=== PATIENT | female | born 1975 | race Caucasian/White ===

== ENCOUNTER 2024-12-13 16:03 | Emergency (ER) | payer OTHER, SELFPAY ==
--- NOTE | 2024-12-13 | ECG_ITS ---
Test Reason : TIGHTNESS IN CHEST Blood Pressure : */* mmHG Vent. Rate : 82 BPM Atrial Rate : 82 BPM P-R Int : 148 ms QRS Dur : 74 ms QT Int : 368 ms P-R-T Axes : 14 7 62 degrees QTcB Int : 429 ms Normal sinus rhythm Minimal voltage criteria for LVH, may be normal variant ( R in aVL ) Inferior infarct , age undetermined Possible Anterior infarct , age undetermined Abnormal ECG No previous ECGs available Referred By: Generic ED Physician Electronically Signed By: SAMAN GUERRERO
--- NOTE | ~2024-12-13 | XR_ITS ---
CLINICAL HISTORY: chest pain 2 view chest x-ray. Comparison: None Findings: No consolidation. Heart size normal No acute fracture. Impression: The lungs are clear. This document has been electronically signed by: Akbar Mallory MD on 12/13/2024 17:13:45
--- NOTE | 2024-12-13 16:22 | ED_ITS ---
HPI - Chest Pain General Chief Complaint: Chest Pain Stated Complaint: tightness in chest Time Seen by Provider: 12/13/24 17:06 Source: patient, RN notes reviewed and old records reviewed Mode of arrival: ambulatory Limitations: no limitations History of Present Illness ED Provider: Heike WARD narrative: Patient is a 49-year-old female with history of T2DM, GERD, high cholesterol presenting to the emergency department with complaint of chest tightness and pressure. States her 1st episode of this happening woke her from sleep on night and lasted between 10 and 20 minutes, then she was able to fall back asleep. Today she was driving and felt similar symptoms and states ?I just did not feel right. ? States that today's chest tightness lasted around 30 minutes and has since fully resolved. She reports associated dyspnea. Denies any chest tightness, dyspnea or palpitations at this time. States has a family history of cardiac disease, states several cousins have at age 50. Feels as though her symptoms worsened when she started thinking about them/noticing them, is unsure how much of a component her anxiety has to her symptoms. Denies any nausea or vomiting. Denies diaphoresis. complaint: chest discomfort Related Data Allergies Allergy/AdvReac Type Severity Reaction Status Date / Time No Known Allergies Allergy Verified 12/13/24 16:24 Review of Systems 2 Review of Systems: As per HPI Yes all other systems are reviewed and are negative Constitutional: Constitutional: Reports as per HPI [facility] Social History Social History Use of substances other than those prescribed or required for medical reasons: No Advance Directives: No Advance Directives Information Provided: No Do you have a plan to hurt others: No Plan Patient : No Physical Exam 2 Vital Signs: Vital Signs: Last Vital Signs Temp 97.1 F 12/13/24 18:20 Pulse 68 12/13/24 18:20 Resp 17 12/13/24 18:20 BP 115/78 12/13/24 18:20 Pulse Ox 96 12/13/24 18:20 O2 Del Method Room Air 12/13/24 18:20 BMI result Body Mass Index 33.1 Vital signs have been reviewed and appear to be correct. Blood pressure normal. Heart rate normal. Respiratory rate normal. Temperature normal. Oxygen saturation normal. Const: General: cooperative, healthy appearing and no acute distress O rientation/consciousness: oriented to person, oriented to place, oriented to time and patient oriented x3 Limitations: no limitations HEENT: Head: Yes normocephalic and Yes atraumatic Ears: external ears normal General nose exam: Normal external nose present Face and sinus: Yes face symmetric Mouth: oropharynx normal and moist mucous membranes Throat: Yes uvula midline Eyes: Pupils: Equal, round and reactive pupils present Neck: Neck: Yes normal visual inspection and Yes supple Resp: Effort & Inspection: normal respiratory effort and able to speak in complete sentences Auscultation: clear to auscultation bilaterally Cardio: Rate: regular rate Rhythm: regular rhythm Heart sounds: S1 normal heart sound present and S2 normal heart sound present GI: Palpation (GI): Soft to palpation and nontender Auscultation: n ormoactive bowel sounds : General: Yes no CVA tenderness Back/Spine/Pelvis: Back: no CVA tenderness Skin: General skin exam: elasticity normal and turgor normal Neuro: General: oriented to person, oriented to place, oriented to time, patient oriented x3, moves all extremities, no focal motor deficits and CN's II- XI intact bilaterally Cranial nerves: Yes Equal, round and reactive pupils present Cognition (Neuro): normal cognition Extrem: General: Yes full ROM, Yes no pedal edema and Yes no calf tenderness Psych: Mental Status: mental status grossly normal Affect: normal affect Thought process: Normal thought process present Course Course Course Narrative: This is an RME performed by Joaquin Patton, DENTAL TECHNICIAN APPRENTICE: Additional HPI, ROS, PE not included below will be deferred to primary provider. Patient is a 49-year-old female who presents emergency department for evaluation, with the past few days she has been experiencing intermittent chest tightness to the mid anterior chest. Reports 2 days ago she just ignored it had self-resolved. Today she had return of symptoms while driving, but felt worse, and associated shortness of breath. Denies recent cough, respiratory symptoms, trauma/injury, heavy lifting. Plan: Serum labs, ECG, CXR, Medical Decision Making Medical Decision Making MDM Narrative: Patient is a 49-year-old female with history of T2DM, GERD, high cholesterol presenting to the emergency department with complaint of chest tightness and pressure. On exam patient is awake, A+Ox3, VS WNL, afebrile, normal neurological exam without focal deficits, physical exam findings as above. Given reported symptoms and physical exam findings, initial differential includes but is not limited to ACS/GA, pleural effusion, pneumonia, pneumothorax, musculoskeletal pain, GERD, anxiety. Unlikely PE, PERC 0. EKG shows normal sinus rhythm. Labs notable for mildly elevated alk-phos, elevated glucose without anion gap, negative troponin x2. X-ray chest notable for no evidence of pneumonia, pneumothorax. My interpretation is in agreement with the radiologist's interpretation. Patient is pain free at this time. HEART score of 3. The patient is stable for discharge at this time. Advised follow up with PCP. Strict return precautions discussed. Patient verbalized understanding of and agreement with plan. Differential Diagnosis Differential Diagnoses: The differential diagnosis associated with the presentation includes As per [facility] Admission/Observation Consideration of admission/observation: Escalation of care including admission/observation considered Patient would have been admitted to the hospital had their clinical presentation warranted hospital admission. Lab Data [facility] Lab Attestation statement: I reviewed the patient's lab results. As per [facility] 12/13/24 16:40 12/13/24 16:40 Labs: Lab Results 12/13/24 12/13/24 Range/Units 16:40 18:29 WBC 7.0 (4.8-10.8) X10*3/uL RBC 4.70 (4.20-5.50) X10*6/uL Hgb 13.5 (12.0-16.0) g/dl Hct 37.9 (37.0-47.0) % MCV 80.6 (80.0-98.0) fL MCH 28.7 (27.0-33.0) pg MCHC 35.6 H (31.0-35.0) g/dl RDW 13.2 (11.0-16.0) % Plt Count 172 (160-400) X10*3/uL MPV 11.4 (9.4-12.3) fL Immature Gran % (Auto) 0.4 (0.0-0.4) % Neut % (Auto) 55.5 (45-73) % Lymph % (Auto) 35.9 (20-40) % [place] % (Auto) 6.6 (2-11) % Eos % (Auto) 1.3 (0-4) % Baso % (Auto) 0.3 (0-2) % Lymph # (Auto) 2.5 (1.2-4.9) X10*3/uL [place] # (Auto) 0.5 (0.1-1.2) X10*3/uL Eos # (Auto) 0.1 (0.0-0.4) X10*3/uL Baso # (Auto) 0.0 (0.0-0.2) X10*3/uL Abs Immat Gran (auto) 0.03 (0.00-0.03) X10*3/uL Absolute Neuts (auto) 3.9 (2.0-8.3) x10*3/uL Absolute Nucleated RBC 0.000 (0.0-0.012) X10*3/uL Nucleated RBC % (auto) 0.0 (0.0-0.2) /100WBC Smear Tech's Comments VERIFIED Sodium 139 (135-145) mmol/L Potassium 4.0 (3.3-5.1) mmol/L Chloride 105 (96-108) mmol/L Carbon Dioxide 24 (22-29) mmol/L Anion Gap 14 (12-20) BUN 13 (9-16) mg/dL Creatinine 0.84 (0.5-1.4) mg/dL Estim Creat Clear Calc 83.6 Estimated GFR > 60 Random Glucose 298 H (60-115) mg/dL Calcium 9.3 (8.4-10.2) mg/dL Total Bilirubin 0.5 (0.0-1.0) mg/dL AST 23 (5-31) U/L ALT 39 H (0-31) U/L Alkaline Phosphatase 159 H (39-117) U/L Troponin I High Sens < 2.7 < 2.7 (<3.5-17.0) ng/L Total Protein 7.3 (6.5-8.0) g/dL Albumin 4.3 (3.5-5.0) g/dL Independent Interpretation I performed an independent interpretation of an: EKG (Normal sinus rhythm, rate 62 beats per minute, normal GA interval and QTC) and Plain X-Ray Interpretation: No evidence of pneumonia or pneumothorax on chest x-ray Radiology Impression Discussion of test interpretation with radiology: I have reviewed the radiologist's reading. Radiologist Impression: 2 view chest x-ray. Comparison: None Findings: No consolidation. Heart size normal No acute fracture. Impression: The lungs are clear. External Record Review External record reviewed: Inpatient record, Office record and Outpatient record Scores Heart Score History: -0- slightly suspicious ECG: -1- non specific repolarization disturbance Age: -1- >45 - <65 Risk factory: -1- 1 or 2 risk factors Troponin: -0- < or = normal limit Score: 3 Risk: 1.7% Discharge Plan Discharge Clinical Impression: Chest pain Patient Disposition: Home, Self-Care Instructions: Chest Pain (DC), Noncardiac Chest Pain (ED) Additional Instructions: You were evaluated in the emergency department today for chest pain. Your evaluation has shown no signs of medical conditions requiring emergent intervention at this time, however we recommend that you follow-up with your primary care physician or your medical program specialist for further testing as an outpatient. Please schedule an appointment for follow-up with your primary care physician as soon as possible. Return to the emergency department if you experience worsening or uncontrolled chest pain, shortness of breath, lightheadedness, feeling faint, loss of consciousness, nausea, vomiting, or any other concerning symptoms. Print Language: Greek
[2024-12-13 16:23] VITALS: BP 148/77; PULSE 77; RESP 18; TEMP 36.6; O2SAT 99; BMI 33.1
[2024-12-13 16:53] LABS: Hematocrit 37.9 % (37.0-47.0); Hemoglobin 13.5 g/dl (12.0-16.0); Imm Gran Abs Auto 0.03 X10*3/uL (0.00-0.03); Imm Gran Pct Auto 0.4 % (0.0-0.4); Lymphocytes Absolute Auto 2.5 X10*3/uL (1.2-4.9); MANUAL DIFF FLAG SCAN; Mean Corpuscular HGB Conc 35.6 g/dl (31.0-35.0); Mean Corpuscular Hemoglobin 28.7 pg (27.0-33.0); Mean Corpuscular Volume 80.6 fL (80.0-98.0); NRBC Abs Auto 0.000 X10*3/uL (0.0-0.012); NRBC Pct Auto 0.0 /100WBC (0.0-0.2); PLT CLUMP 1; Red Blood Count 4.70 X10*6/uL (4.20-5.50); SCAN SMEAR FLAG 1
[2024-12-13 16:57] LABS: White Blood Count 7.0 X10*3/uL (4.8-10.8)
[2024-12-13 16:59] LABS: Alanine Aminotransferase 39 U/L (0-31); Albumin Level 4.3 g/dL (3.5-5.0); Alkaline Phosphatase 159 U/L (39-117); Anion Gap 14 (12-20); Aspartate Amino Transferase 23 U/L (5-31); Blood Urea Nitrogen 13 mg/dL (9-16); Calcium 9.3 mg/dL (8.4-10.2); Carbon Dioxide 24 mmol/L (22-29); Chloride 105 mmol/L (96-108); Creatinine Clr Calc Pharmacy 83.6; Estimated Glomerular Filt Rate > 60; Potassium 4.0 mmol/L (3.3-5.1); Sodium 139 mmol/L (135-145); Total Protein 7.3 g/dL (6.5-8.0)
[2024-12-13 17:06] LABS: Troponin-I High Sensitivity < 2.7 ng/L (<3.5-17.0)
[2024-12-13 17:11] LABS: Platelet Count 172 X10*3/uL (160-400)
--- NOTE | 2024-12-13 18:05 | ECG_ITS ---
Test Reason : REPEAT Blood Pressure : */* mmHG Vent. Rate : 63 BPM Atrial Rate : 63 BPM P-R Int : 128 ms QRS Dur : 78 ms QT Int : 422 ms P-R-T Axes : 14 23 63 degrees QTcB Int : 431 ms Normal sinus rhythm Cannot rule out Anterior infarct (cited on or before 13-Dec-2024) Abnormal ECG When compared with ECG of 13-Dec-2024 16:06, Criteria for Inferior infarct are no longer Present Referred By: Darling Burroughs Electronically Signed By: SAMAN GUERRERO
[2024-12-13 18:20] VITALS: BP 115/78; PULSE 68; RESP 17; TEMP 36.2; O2SAT 96
[2024-12-13 18:58] LABS: Troponin-I High Sensitivity < 2.7 ng/L (<3.5-17.0)
[2024-12-13 19:39] VITALS: BP 0/0; PULSE 0; RESP 16; TEMP -17.7; TEMP 0; O2SAT 0
== END 2024-12-13 19:40 | disposition home or self-care (01) ==
PROVIDERS: Nurse Practitioner Family; Registered Nurse Emergency; Emergency Provider Emergency Medicine Emergency Medical Services; PCP Student in an Organized Health Care Education/Training Program
DX: R10.9 Unspecified abdominal pain (principal); E11.8 Type 2 diabetes mellitus with unspecified complications; K21.9 Gastro-esophageal reflux disease without esophagitis
CPT/HCPCS: 36415; 71046; 80053; 84484; 85025; 93005; 99283; 99285

== ENCOUNTER → 2024-12-13 16:06 | Outpatient (BNV) | payer OTHER, SELFPAY | PROVIDERS: Emergency Provider Emergency Medicine Emergency Medical Services; PCP Student in an Organized Health Care Education/Training Program; Visit Provider Internal Medicine | DX: R07.89 Other chest pain (principal); R94.31 Abnormal electrocardiogram [ECG] [EKG]; Z13.6 Encounter for screening for cardiovascular disorders | CPT/HCPCS: 93010 ==

== ENCOUNTER → 2024-12-13 16:25 | Outpatient (BNV) | payer OTHER, SELFPAY | PROVIDERS: Emergency Provider Emergency Medicine Emergency Medical Services; PCP Student in an Organized Health Care Education/Training Program; Visit Provider Radiology Diagnostic Radiology | DX: R07.9 Chest pain, unspecified (principal) | CPT/HCPCS: 71046 ==

== ENCOUNTER 2025-01-20 12:35 | Outpatient (AMB) | payer OTHER, SELFPAY ==
--- NOTE | 2025-01-20 12:39 | MHC.AMNUTRGE ---
VS Expanded 01/20/25 12:41 01/20/25 13:08 Height 5 ft 3 in 5 ft 3 in Weight 183 lb 6.793 oz 183 lb BMI 32.5 32.4 Intake Visit Reasons: T2DM Allergies No Known Allergies Allergy (Verified 12/13/24 16:24) Nutrition Presentation Details: Pt presents for MNT for T2DM Pt reports he was diagnosed 2 months ago, and this is all new to him. He reports he is currently on long acting insulin and prandial insulin Pt reports his fasting bg today at 218 mg/dl Reports he skips lunch but then has increased appetite in the evening BS Monitoring Most Recent Diabetes Results: Creatinine, (0.5-1.4) 0.84 mg/dL 12/13/24 BUN, (9-16) 13 mg/dL 12/13/24 Sodium, (135-145) 139 mmol/L 12/13/24 Potassium, (3.3-5.1) 4.0 mmol/L 12/13/24 Chloride, (96-108) 105 mmol/L 12/13/24 Carbon Dioxide, (22-29) 24 mmol/L 12/13/24 Calcium, (8.4-10.2) 9.3 mg/dL 12/13/24 AST, (5-31) 23 U/L 12/13/24 ALT, (0-31) 39 U/L H 12/13/24 Total Protein, (6.5-8.0) 7.3 g/dL 12/13/24 Albumin, (3.5-5.0) 4.3 g/dL 12/13/24 QFV-Cvurmht-Ga.Jeor Equation Height: 5 ft 3 in Weight: 183 lb Resting Metabolic Rate: 1427.29 Calculated Activity Level: Sedentary Calories Needed to Maintain Weight: 1712.75 Diagnosis Nutrition problem #1: food nutri know defi As related to (etiology) #1: diagnosis As evidenced by (sign/symptom) #1: knowledge deficit of diet Monitoring/Goals Nutrition problem monitoring: level of knowledge/skill, total PRO intake, total CHO intake and oral fluids Nutrition goal/outcome: list 3 CHO foods Outcome progress: verbalized understanding Learning/Education Readiness to learn: good Assessment & Plan Assessment & Plan (1) T2DM (type 2 diabetes mellitus): Code(s): E11.9 - Type 2 diabetes mellitus without complications Category: Medical Plan: current wt: 83 kg (02/04 ) est kcal needs as per MSJ: 1700 est protein needs as per 1 g/kg BW: 80 est fluid needs as per 30 ml/kg BW: 2500 Recommended sodium intake : 2300 mg/day or less Recommended fiber > 12 g /day and gradually increase up to 25-28 g /day or as tolerated Nutrition topics discussed : Reviewed (R), Pt verbalized understanding (V) , not applicable (N/A) R, : Healthy Plate Method Concept: R, : Carbohydrates: food sources of carbohydrates, relationship of carbohydrates to blood glucose, fatty liver GI health. Recommended total amount of carbohydrates per meals and snack. Differences between simple carbohydrates and complex carbohydrates R, : Lean protein foods including vegan , vegetarian sources of protein. Benefits of protein (including but not limited to healing, nutritional value , benefits in weight loss, glucose control R, V, N/A: Fats : Source of fats, benefits of fats. Difference between saturated and unsaturated fats. Saturated fats and its contribution to inflammation R, V, N/A: Fiber: food sources and role of fiber in the diet (including but not limited to its role as a prebiotic, benefits in constipation, role in IBS , role in glucose control and cholesterol level) R, : Hydration: role of hydration and prevention of dehydration or over hydration. Foods and water content. R, V, N/A: Vitamins and Minerals in foods and supplements R, : Interpreting food labels, including serving size, macronutrients, vitamins, minerals, allergens, ingredient list , % daily value (CARBOHYDRATES) Patient Instructions: Hve a meal replacement at lunch time Follow healthy plate method at dinner Choose water, herb/fruit infused beverages see meal plan consisisting of 60 g carb per meal or less ) Coding Level of Care Code Nutr Indiv Intake (93807) Diagnoses T2DM (type 2 diabetes mellitus) E11.9 Time Spent (min) 30
[2025-01-20 12:41] VITALS: BMI 32.5
--- OUTSIDE RECORDS SUMMARY | 2025-01-20 15:31 | XMS_ITS | Clinical Summary ---
Author Organization [address] [place] [address] Address [address] [place] [address] Phone Care Team Providers Care Thread Winder Automatic Name Role Phone Carmela Clayton MD Primary Care Provider [phone] Allergies No known active allergies Medications metFORMIN (GLUCOPHAGE) 1,000 mg tablet Take 1 tablet (1,000 mg total) by mouth 2 (two) times a day with meals. 60 each 11 5 07/08/19 26 Active cholecalciferol (Vitamin D3) 50 mcg (2,000 unit) tablet Take 1 tablet (2,000 Units total) by mouth 1 (one) time each day. 90 tablet 3 5 07/08/19 26 Active blood-glucose meter kitIndications: Type 2 diabetes mellitus without complication, without long-term current use of insulin ([facility] V24, CMS/[facility] V28) Use daily or as directed for monitoring of diabetes 1 each 5 07/14/19 26 Active glucose blood test stripIndication s:Type 2 diabetes mellitus without complication, without long-term current use of insulin (CMS/HCC V24, CMS/[facility] V28) Check blood sugar three times a day or as directed 100 each 11 5 07/14/19 26 Active freestyle 28 gauge lancetsIndicati ons:Type 2 diabetes mellitus without complication, without long-term current use of insulin (CMS/[facility] V24, CMS/HCC V28) Use as instructed, up to 3 times a day 100 each 12 5 07/14/19 26 Active omeprazole (PriLOSEC) [address] capsule Take 1 capsule (20 mg total) by mouth daily. 3 Active insulin glargine (LANTUS SoloStar) 100 unit/mL (3 mL) injection penIndications: Type 2 diabetes mellitus without complication, without long-term current use of insulin ([facility] V24, [facility] V28) Inject 8 Units under the skin at bedtime. 15 mL 2 5 Active pen needle, diabetic 31 gauge x 5/16 needleIndicatio ns:Type 2 diabetes mellitus without complication, without long-term current use of insulin ([facility] V24, [facility] V28) Use to inject 1 times daily as directed 100 each 1 5 Active atorvastatin (LIPITOR) 40 mg tablet Take 1 tablet (40 mg total) by mouth 1 (one) time each day. 30 each 5 5 04/17/20 25 Active blood-glucose,r eceiver,cont (FreeStyle Catracho 3 Crumpler) miscIndications :Type 2 diabetes mellitus without complication, without long-term current use of insulin ([facility] V24, [facility] V28) Check sugars regularly 1 each 5 Active blood-glucose sensor (FreeStyle Catracho 3 Plus Sensor) deviceIndicatio ns:Type 2 diabetes mellitus without complication, without long-term current use of insulin ([facility] V24, [facility] V28) Box = Kit = EA, change sensor every 2 weeks 2 each 11 5 Active insulin lispro (HumaLOG KwikPen) 100 unit/mL injection penIndications: Type 2 diabetes mellitus without complication, without long-term current use of insulin ([facility] V24, [facility] V28) 3 times a day before meals per sliding scale max up to 15 units a day 15 mL 2 5 Active omeprazole (PriLOSEC) [address] capsule TAKE 1 CAPSULE BY MOUTH EVERY DAY DO NOT CRUSH OR CHEW 90 capsule 1 5 Active atorvastatin (LIPITOR) 20 mg tablet TAKE 1 TABLET BY MOUTH EVERY DAY 90 tablet 1 5 Active Active Problems Problem Noted Date Diagnosed Date Type 2 diabetes mellitus wit hout complication, without long-term current use of insulin ([facility] V24, [facility] V28) 12/14/2024 Anxiety 2024 Asthma 2024 Fatty liver 2024 Gastroesophageal reflux disease 2024 Hyperlipidemia 2024 Obesity 2024 Status post hysterectomy 06/08/2023 Encounters Date Type Department Care Team Description 12/14/2024 3:00 PM EDT Office Visit Internal Medicine - [place] [address] [place] [address] Carmela Clayton MD Chest pain at rest (Primary Dx); Gastroesophageal reflux disease, unspecified whether esophagitis present; Mild intermittent asthma, unspecified whether complicated; Mixed hyperlipidemia; Anxiety; Type 2 diabetes mellitus without complication, without long-term current use of insulin ([facility] V24, [facility] V28) 11/20/2024 1:15 PM EDT Office Visit [facility] [address] [phone] Jourdan León PA COVID-19 (Primary Dx) 10/29/2024 11:30 AM EDT Office Visit Endocrinology [address] [phone] Brooks Chaidez MD Type 2 diabetes mellitus without complication, without long-term current use of insulin ([facility] V24, [facility] V28) (Primary Dx) 10/20/2024 Telephone Adult Medicine [address] [phone] Loretta Singh, PharmD from Last 3 Months Social History Tobacco Use Types Packs/Day Years Used Date Smoking Tobacco: Former Cigarettes Smokeless Tobacco: Never Comments No Sex and Gender Information Value Date Recorded Sex Assigned at Not on file Legal Sex Female 10:58 AM EDT Gender Identity Not on file Sexual Orientation Not on file Obstetrics History Last Filed Vital Signs Vital Sign Reading Time Taken Comments Blood Pressure 128/62 12/14/2024 3:11 PM EDT Pulse 79 12/14/2024 3:11 PM EDT Temperature 36.8 C (98.2 F) 11/20/2024 1:22 PM EDT Respiratory Rate 12 10/15/2024 3:13 PM EDT Oxygen Saturation 98% 12/14/2024 3:11 PM EDT Inhaled Oxygen Concentration - - Weight 81.6 kg (180 lb) 12/14/2024 3:11 PM EDT Height 162.6 cm (5' 4 ) 12/14/2024 3:11 PM EDT Body Mass Index 30.9 12/14/2024 3:11 PM EDT Plan of Treatment Upcoming Encounters Date Type Department Care Team (Late st Contact Info) Description 01/25/2025 4:30 PM EDT Office Visit Endocrinology [address] [phone] Brooks Chaidez MD [address] [place] [address] 03/18/2025 11:15 AM EST Office Visit Internal Medicine - [place] [address] [facility] [address] [place] [phone] Carmela Clayton MD [address] [facility] [address] [place] [address] Health Maintenance Due Date Last Done Comments Breast Cancer Screening 1975 Diabetes: Annual Foot Exam 1985 Diabetes: Annual Retina Eye Exam 1985 DTaP,Tdap,and Td Vaccines (1 - Tdap) 1994 Hepatitis B Vaccines (1 of 3 - 19+ 3-dose series) 1994 Pneumococcal Vaccine: Pediatrics (0 to 5 Years) and At-Risk Patients (6 to 49 Years) (1 of 2 - PCV) 1994 Cervical Cancer Screening: P ap Smear 01/29/1996 HIV Screening 03/12/2024 Hepatitis C Screening 03/12/2024 Social Influencers of Health Screening 03/12/2024 Depression Screening 05/13/2024 Diabetes: Annual Urine Albumin-Creatinine Ratio (uACR) 07/08/2024 COVID-19 Vaccine ( - 2023-2 5 season) 2025 Influenza Vaccine (#1) 2025 Diabetes: Blood Sugar Contro l Test (HGBA1C) 04/15/2025 10/14/2024, 07/07/2024 Diabetes: Annual GFR (Glomerular Filtration Rate) 10/14/2025 10/14/2024, 07/07/2024 Cholesterol Screening (Lipid Panel) 10/14/2029 10/14/2024, 07/07/2024, 07/07/2024 Colorectal Cancer Screening: Colonoscopy 11/18/2033 11/19/2023 HIB Vaccines Aged Out No longer eligi ble based on patient's age to complete this topic HPV Vaccines Aged Out No longer eligi ble based on patient's age to complete this topic Hepatitis A Vaccines Aged Out No long er eligible based on patient's age to complete this topic IPV Vaccines Aged Out No longer eligi ble based on patient's age to complete this topic MMR Vaccines Aged Out No longer eligi ble based on patient's age to complete this topic Meningococcal ACWY Vaccine Aged Out N o longer eligible based on patient's age to complete this topic Meningococcal B Vaccine Aged Out No l onger eligible based on patient's age to complete this topic RSV Immunization Patients Under 20 months Aged Out No longer eligible b ased on patient's age to complete this topic Varicella Vaccines Aged Out No longer eligible based on patient's age to complete this topic Procedures Procedure Name Priority Date/Time Associated Diagnosis Comments POC RAPID [id number], MOLECULAR Routine 11/20/2024 1:36 PM EDT COVID-19 COMPREHENSIVE METABOLIC PANEL Routine 10/14/2024 1:39 PM EDT Type 2 diabetes mellitus without complication, without long-term current use of insulin ([facility] V24, [facility] V28) Dyslipidemia HEMOGLOBIN A1C Routine 10/14/2024 1:39 PM EDT Type 2 diabetes mellitus without complication, without long-term current use of insulin (CMS/HCC V24, CMS/HCC V28) LIPID PANEL WITH REFLEX TO DIRECT LDL Routine 10/14/2024 1:39 PM EDT Type 2 diabetes mellitus without complication, without long-term current use of insulin ([facility] V24, CMS/[facility] V28) from Last 3 Months or Most Recently Relevant to Health Maintenance Results * (ABNORMAL) Poc Rapid [id number], MOLECULAR (11/20/2024 1:36 PM EDT) COVID-19/SARS- COV-2 Rapid POC Positive(A ) Negative Swab Nasopharyngeal structure / Unknown 11/20/2024 1:36 PM EDT Jourdan VARNER POINT OF CARE TEST ENTER/E DIT ORDERABLES Final Result * (ABNORMAL) Lipid panel with reflex to direct LDL (10/14/2024 1:39 PM EDT) Pathologist [facility] Cholesterol 174 0 - 200 mg/dL LAB CHEMISTRY METHOD 10/14/2024 6:27 PM EDT [facility] Triglycerides 336(H) 0 - 150 mg/dL LAB CHEMISTRY METHOD 10/14/2024 6:27 PM EDT [facility] HDL 28(L) >=40 mg/dL LAB CHEMISTRY METHOD 10/14/2024 6:27 PM EDT [facility] LDL Calculated 79 0 - 100 mg/dL LAB CHEMISTRY METHOD 10/14/2024 6:27 PM EDT [facility] VLDL Cholesterol Epi 67.2 mg/dL LAB CHEMISTRY METHOD 10/14/2024 6:27 PM EDT [facility] Non HDL Chol. (LDL+VLDL) 146(H) <145 mg/dL LAB CHEMISTRY METHOD 10/14/2024 6:27 PM EDT [facility] Chol/HDL Ratio 6.2(H) 0.0 - 4.4 LAB CHEMISTRY METHOD 10/14/2024 6:27 PM EDT [facility] Blood Venous blood specimen / Unknown Venipuncture / Unknown 10/14/2024 1:39 PM EDT 10/14/2024 1:39 PM EDT Carmela Clayton MD LAB BLOOD ORDERABLES Final Resul t [facility] [address] [place] [address], [place] [phone] * (ABNORMAL) Hemoglobin A1c (10/14/2024 1:39 PM EDT) [facility] Hemoglobin A1C 11.4(H) <6.5 % LAB CHEMISTRY METHOD 10/14/2024 7:56 PM EDT [facility] Mean Bld Glu Estim. 280 mg/dL LAB CHEMISTRY METHOD 10/14/2024 7:56 PM EDT [facility] Blood Venous blood specimen / Unknown Venipuncture / Unknown 10/14/2024 1:39 PM EDT 10/14/2024 1:39 PM EDT Carmela Clayton MD LAB BLOOD ORDERABLES Final Resul t [facility] [address] [place] [address], [place] [phone] * (ABNORMAL) Comprehensive metabolic panel (10/14/2024 1:39 PM EDT) [facility] Sodium 134 133 - 145 mmol/L LAB CHEMISTRY METHOD 10/14/2024 6:32 PM [facility] Potassium 4.0 3.5 - 5.5 mmol/L LAB CHEMISTRY METHOD 10/14/2024 6:32 PM [facility] Chloride 102 96 - 110 mmol/L LAB CHEMISTRY METHOD 10/14/2024 6:32 PM T [facility] CO2 27 21 - 32 mmol/L LAB CHEMISTRY METHOD 10/14/2024 6:32 PM [facility] Anion Gap 5 3 - 11 LAB CHEMISTRY METHOD 10/14/2024 6:32 PM [facility] Glucose 318(H) 70 - 100 mg/dL LAB CHEMISTRY METHOD 10/14/2024 6:32 PM [facility] BUN 9 5 - 25 mg/dL LAB CHEMISTRY METHOD 10/14/2024 6:32 PM [facility] Creatinine 0.80 0.50 - 1.10 mg/dL LAB CHEMISTRY METHOD 10/14/2024 6:32 PM [facility] eGFR 90 >=60 mL/min/1. 73m2 LAB CHEMISTRY METHOD 10/14/2024 6:32 PM [facility] Comment:Calculation based on the Chronic Kidney Disease Epidemiology Collaboration (CKD-EPI) equation refit without adjustment for race. BUN/Creatinine Ratio 11.3 LAB CHEMISTRY METHOD 10/14/2024 6:32 PM [facility] Calcium 8.9 8.5 - 10.5 mg/dL LAB CHEMISTRY METHOD 10/14/2024 6:32 PM [facility] AST (SGOT) 24 10 - 42 unit/L LAB CHEMISTRY METHOD 10/14/2024 6:32 PM [facility] ALT (SGPT) 58 10 - 60 unit/L LAB CHEMISTRY METHOD 10/14/2024 6:32 PM [facility] Alkaline Phosphatase 156(H) 42 - 121 unit/L LAB CHEMISTRY METHOD 10/14/2024 6:32 PM [facility] Total Protein 6.7 6.0 - 8.0 g/dL LAB CHEMISTRY METHOD 10/14/2024 6:32 PM [facility] Albumin 3.7 3.2 - 5.0 g/dL LAB CHEMISTRY METHOD 10/14/2024 6:32 PM [facility] Total Bilirubin 0.6 0.0 - 1.4 mg/dL LAB CHEMISTRY METHOD 10/14/2024 6:32 PM [facility] Blood Venous blood specimen / Unknown Venipuncture / Unknown 10/14/2024 1:39 PM EDT 10/14/2024 1:39 PM EDT us Sandra Lawson MD LAB BLOOD ORDERABLES Final Res ult [facility] [address] [place] [address], from Last 3 Months or Most Recently Relevant to Health Maintenance Insurance [facility] Care Teams Thread Winder Automatic Relationship Specialty Start Date End Date Carmela Clayton MD [address] [place] [phone] PCP - General Internal Medicine 03/12/24
[2025-01-25 21:42] VITALS: BMI 32.4
== END 2025-01-20 13:26 | disposition home or self-care (01) ==
LOC: HO.ENCR 12:36
PROVIDERS: PCP Student in an Organized Health Care Education/Training Program; Visit Provider Dietitian, Registered
DX: E11.9 Type 2 diabetes mellitus without complications (principal)

== ENCOUNTER → 2025-01-20 12:35 | Outpatient (BNVA) | payer OTHER, SELFPAY | PROVIDERS: PCP Student in an Organized Health Care Education/Training Program; Visit Provider Dietitian, Registered | DX: E11.9 Type 2 diabetes mellitus without complications (principal); Z79.4 Long term (current) use of insulin | CPT/HCPCS: 97802 ==